=== PATIENT | male | born 1975 | race Caucasian/White ===

== ENCOUNTER 2019-10-17 15:57 | Inpatient (IN) | payer MEDICAID ==
[~2019-10-17] VITALS: Ht 180.3 cm; Wt 66.1 kg
--- NOTE | 2019-10-18 10:58 | EKG ---
[facility] [address] [facility] [place] [address] Signed Sinus tachycardia Possible Left atrial enlargement Left axis deviation Low voltage QRS Cannot rule out Anterior infarct , age undetermined Abnormal ECG No previous ECGs available Confirmed by NATALIO GARCIA MD ([id number]) on 10/18/2019 10:57:46 AM Electronically Signed By: NATALIO GARCIA MD 10/18/19 1058 PATIENT NAME: ANA MATTHEWS III Electrocardiogram DATE OF : 73 PHYSICIAN: NATALIO GARCIA MD REPORT #: [id number] REPORT IS CONFIDENTIAL AND NOT TO BE RELEASED WITHOUT AUTHORIZATION
[2019-10-19] MEDS ORDERED: NICOTINE PATCH1 EAC1 TD (10:45)
[2019-10-19] MEDS ORDERED: METOPROLOL SUCC25 MG PO (10:46)
[2019-10-19] MEDS ORDERED: LISINOPRIL2.5 MG PO (10:46)
[2019-10-19] MEDS ORDERED: FUROSEMIDE20 MG PO (10:46)
== END 2019-10-19 13:15 | disposition home or self-care (01) | DRG 292 ==
LOC: ED 15:57 → CCU 19:06 → MS 10-18 13:20
PROVIDERS: ADMIT Internal Medicine
DX: I50.23 Acute on chronic systolic (congestive) heart failure (principal); F10.239 Alcohol dependence with withdrawal, unspecified; I47.2 Ventricular tachycardia; F17.210 Nicotine dependence, cigarettes, uncomplicated; I34.0 Nonrheumatic mitral (valve) insufficiency; F15.10 Other stimulant abuse, uncomplicated; F12.10 Cannabis abuse, uncomplicated
CPT/HCPCS: 36415; 71045; 80048; 80053; 80061; 83036; 83735; 83880; 84425; 84439; 84443; 84484; 85025; 86141; 93005; 93010; 93306; 96374; 99285-25; 99406; J1650; J1940; J3475

== ENCOUNTER 2020-10-29 23:30 | Emergency (ER) | payer OTHER ==
[~2020-10-29] VITALS: Ht 180.3 cm; Wt 68.0 kg
[~2020-10-29 23:30] MED LIST: FUROSEMIDE20 MG PO; LISINOPRIL2.5 MG PO; METOPROLOL SUCC25 MG PO; NICOTINE PATCH1 EAC1 TD
--- NOTE | 2020-10-30 16:58 | EKG ---
[facility] [address] [facility] [place] [address] Signed Sinus tachycardia Possible Left atrial enlargement Left axis deviation Inferior infarct , age undetermined T wave abnormality, consider lateral ischemia Abnormal ECG When compared with ECG of 17-OCT-2019 16:13, No significant change was found Confirmed by NATALIO GARCIA MD ([id number]) on 10/30/2020 4:57:52 PM Electronically Signed By: NATALIO GARCIA MD 10/30/20 1658 PATIENT NAME: CASSIEANACLARISSA BENAVIDES III Electrocardiogram DATE OF : 73 PHYSICIAN: NATALIO GARCIA MD REPORT #: [id number] REPORT IS CONFIDENTIAL AND NOT TO BE RELEASED WITHOUT AUTHORIZATION
== END 2020-10-30 04:16 | disposition short-term general hospital (02) ==
LOC: ED 23:30
DX: K55.061 Focal (segmental) acute infarction of intestine, part unspecified (principal); I71.02 Dissection of abdominal aorta; I50.9 Heart failure, unspecified; I31.3 Pericardial effusion (noninflammatory); Z20.822 Contact with and (suspected) exposure to COVID-19; F17.200 Nicotine dependence, unspecified, uncomplicated; Z79.899 Other long term (current) drug therapy
CPT/HCPCS: 71045; 74177; 80053; 83735; 83880; 84484; 85025; 93005; 93010; 96375; 99285-25; C9803; J1940; J2405; Q9967; U0003